=== PATIENT | male | born 1960 | race Caucasian/White ===

== ENCOUNTER 2017-10-02 18:59 | Emergency (ER) | payer OTHER ==
[~2017-10-02] VITALS: Ht 177.8 cm; Wt 100.3 kg
[~2017-10-02 18:59] MED LIST: FLEXERIL10 MG PO; MOTRIN800 MG PO
[2017-10-03 01:23] VITALS: BP 170/105
== END 2017-10-03 01:24 | disposition home or self-care (01) ==
LOC: EME 18:59
DX: S05.12XA Contusion of eyeball and orbital tissues, left eye, initial encounter (principal); Y04.2XXA Assault by strike against or bumped into by another person, initial encounter; Y99.0 Civilian activity done for income or pay
CPT/HCPCS: 70480; 99281; 99283